=== PATIENT | male | born 1990 | race Caucasian/White ===

== ENCOUNTER → 2017-03-17 | Outpatient (CLI) | payer BC, OTHER ==
--- NOTE | 2017-03-17 10:33 | DI ---
XR FOOT COMPLETE MIN 3VW,03/17/2017 9:56 AM: Clinical History: Left foot pain Previous Exam: None at this facility. Findings: 3 views of the left foot are obtained, and demonstrate anatomic alignment without fractures. Surround ing soft tissues are unremarkable. Impression: Normal left foot.
== END ==
LOC: RAD 09:49
PROVIDERS: ATTEND Family Medicine
DX: M79.672 Pain in left foot (principal)
CPT/HCPCS: 73630